=== PATIENT | male | born 1985 | race Caucasian/White ===

== ENCOUNTER 2017-06-05 17:40 | Emergency (ER) | payer OTHER ==
[~2017-06-05] VITALS: Ht 170.2 cm; Wt 92.5 kg
--- NOTE | ~2017-06-05 | CR63 ---
[facility]. [facility] A Service of [facility] & [facility] RADIOLOGY TEXT RESULTS PATIENT: PRISCILLA FIELDS LOCATION: SED : [birth year] UNIT #: [id number] AGE: [address]: HELEN GONZALES SEX: M ORDER DR: [id number] [place] [id number] MR#: [id number] Acc #: [id number] NAME: PRISCILLA FIELDS : 1985 SEX: M STUDY DATE/TIME: 06/05/2017 18:36 UNIT: SED ROOM: STUDY DESCRIPTION: CR Chest 2 View Attending Physician: Helen Gonzales Aprn Ordering Physician: Helen Gonzales Aprn Primary Care Physician: Primary Care Physician No MEDICAL IMAGING REPORT This report is preliminary unless electronic signature is present. EXAM PA and lateral chest HISTORY Cough, congestion, shortness of air for 1 day. FINDINGS Two views of the chest demonstrate the cardiac size and pulmonary vascularity are normal. Mild mid-right thoracic curve. No infiltrates or effusions. IMPRESSION No acute findings. No active disease. Dictated by... Alonso Pacheco M.D. THIS IS AN ELECTRONICALLY VERIFIED REPORT Alonso Pacheco M.D. at 06/05/2017 11:23 PM DFL/thierno TD: 06/05/2017 20:57 JOB #: [id number] MEDICAL IMAGING REPORT Page 1 of 1
[~2017-06-05 17:40] MED LIST: ASPIRIN EC81 M1 PO; CLOPIDOGREL75 MG PO; IMDUR-ER60 M2 PO; LEVOTHYROXINE75 MCG PO; METOPROLOL SUCC25 MG PO; NITROSTAT0.4 MG SL; OMEPRAZOLE20 M1 PO; SIMVASTATIN40 MG PO; TRILEPTAL600 MG PO
== END 2017-06-05 19:32 | disposition home or self-care (01) ==
LOC: SED 17:40
DX: J06.9 Acute upper respiratory infection, unspecified (principal); J45.909 Unspecified asthma, uncomplicated; I10 Essential (primary) hypertension; I25.2 Old myocardial infarction; Z79.82 Long term (current) use of aspirin; Z79.899 Other long term (current) drug therapy
CPT/HCPCS: 71020; 99283

== ENCOUNTER 2017-06-16 22:58 | Emergency (ER) | payer OTHER ==
[~2017-06-16] VITALS: Ht 170.2 cm; Wt 92.1 kg
== END 2017-06-17 00:29 | disposition home or self-care (01) ==
LOC: SED 22:58
DX: K60.0 Acute anal fissure (principal); I25.10 Atherosclerotic heart disease of native coronary artery without angina pectoris; Z95.5 Presence of coronary angioplasty implant and graft; I10 Essential (primary) hypertension; E78.5 Hyperlipidemia, unspecified
CPT/HCPCS: 99283